=== PATIENT | male | born 1985 | race Caucasian/White ===

== ENCOUNTER 2020-05-08 13:56 | Emergency (ER) | payer OTHER, SELFPAY ==
[2020-05-08 16:16] VITALS: BP 111/72; PULSE 68; RESP 18; TEMP 37.1; O2SAT 98; BMI 21.2
--- NOTE | 2020-05-08 16:49 | ECG_ITS ---
Test Reason : CP Blood Pressure : / mmHG Vent. Rate : 063 BPM Atrial Rate : 063 BPM P-R Int : 162 ms QRS Dur : 096 ms QT Int : 374 ms P-R-T Axes : 069 059 056 degrees QTc Int : 382 ms Normal sinus rhythm RSR' or QR pattern in V1 suggests right ventricular conduction delay Left atrial enlargement Left ventricular hypertrophy Early repolarization Abnormal ECG When compared with ECG of 04-APR-2019 20:21, No significant change was found Referred By: Generic ED Physician Electronically Signed By: DAPHNE CABEZAS MD [facility]
--- NOTE | 2020-05-08 17:29 | XR_ITS ---
EXAMINATION: XR CHEST CLINICAL INFORMATION: Chest pain COMPARISON: None TECHNIQUE: Frontal view of the chest was obtained. FINDINGS: Normal cardiomediastinal silhouette. There is a 1.5 cm nodular density in the right upper lobe, projecting over the anterior right second rib. No focal consolidation. No pleural effusion or pneumothorax No acute osseous abnormality. IMPRESSION: 1.5 cm nodular density in the right upper lobe, projecting over the anterior right second rib. Differential diagnosis includes calcified granuloma or a bone island within the rib. Recommend comparison to any prior studies. CT can also be obtained for further evaluation.
--- NOTE | 2020-05-08 17:30 | ED.CHESTPAIN ---
HPI - Chest Pain General Chief Complaint: Chest Pain Stated Complaint: chest pain Time Seen by Provider: 05/08/20 17:29 Source: patient Mode of arrival: ambulatory Limitations: no limitations History of Present Illness HPI narrative: 35-year-old male otherwise healthy presented with chest pain while [place] the park, patient described the pain lasted for 15 minutes, no radiation, no associated symptoms, patient declined any risks for DVT/ PE no recent travel, no lower extremity swelling or tenderness. Patient also declined any other medical problem, decline risk factor of smoking. Risk Factors Coronary artery disease risk factors: none Related Data Home Medications Medication Instructions Recorded Confirmed No Known Home Meds 05/08/20 05/08/20 Allergies Allergy/AdvReac Type Severity Reaction Status Date / Time No Known Allergies Allergy Verified 05/08/20 16:18 [No Known Allergies*] Review of Systems Review of Systems: Review of Systems Review of Systems Yes all other systems are reviewed and are negative Constitutional: Reports as per HPI and Reports no additional constitutional complaints Eyes: Reports as per HPI and Reports no additional eye complaints Reports system reviewed and no additional complaints, except as documented Cardiovascular: Reports as per HPI and Reports no additional cardiovascular complaints Respiratory: Reports as per HPI and Reports no additional respiratory complaints Gastrointestinal: Reports as per HPI and Reports no additional gastrointestinal complaints Genitourinary: Reports no additional female genitourinary complaints Musculoskeletal: Reports no additional musculoskeletal complaints Skin/Breast: Reports system reviewed and no additional complaints, except as docu Reports system reviewed and no additional complaints, except as documented and Reports Abnormal speech present Psychiatric: Reports no additional psychiatric complaints Endocrine: Reports no additional endocrine complaints Hematologic/Lymphatic: Reports no additional hematologic/lymphatic complaints Allergic/Immunologic: Reports no additional allergic/immunologic complaints [facility] Past Medical History Medical History Patient denies significant medical history Social History Social History Alcohol intake: unknown Smoking Status: Unknown if ever smoked Use of substances other than those prescribed or required for medical reasons: Unknown Advance Directives: No Advance Directives Information Provided: Yes Physical Exam Vital Signs: Vital Signs: Vital Signs Temp Pulse Resp BP Pulse Ox 05/08/20 22:08 97.7 F 65 20 115/79 96 05/08/20 19:19 97.8 F 73 18 117/75 99 05/08/20 16:16 98.8 F 68 18 111/72 98 Body Mass Index 21.2 Const: General: cooperative, healthy appearing, comfortable, no acute distress, well developed, alert, awake and Physically active Orientation/consciousness: oriented to person, oriented to place and oriented to time HENMT: Head: Yes normal to inspection, Yes No palpable skull fracture present, Yes normocephalic and Yes atraumatic Eyes: General: appearance normal, both eyes and all related structures Visual Pierson: normal visual pierson by confrontation Alignment and Position: alignment normal and position normal Periorbital: periorbital findings normal Eyelids: Yes eyelids normal Conjunctivae: conjunctivae normal Sclerae: sclerae normal Corneas: corneas normal Pupils: Equal, round and reactive pupils present and Pupils normal by confrontation EOM: EOMs intact bilaterally Neck: Neck: Yes normal visual inspection, Yes full ROM, Yes no lymphadenopathy, Yes no meningeal signs, Yes trachea midline and Yes supple Chest: Chest palpation & inspection: normal inspection of the chest and normal palpation of entire chest wall Resp: Effort & Inspection: normal respiratory effort and able to speak in complete sentences Auscultation: clear to auscultation bilaterally Back/Spine/Pelvis: Cervical Spine: cervical ROM abnormal Thoracic/Lumbar Spine: thoracic and lumbar spine normal to inspection Skin: General skin exam: no rashes or lesions noted, elasticity normal and turgor normal Neuro: General: oriented to person, oriented to place, oriented to time, gait normal, tone normal, moves all extremities, no meningeal signs and no focal motor deficits Cranial nerves: Yes CN's II-XII intact bilaterally, Yes Facial sensation intact/muscles of mastication intact and Yes Equal, round and reactive pupils present Cognition (Neuro): normal cognition Speech: Abnormal speech present Gait exam (Neuro): Normal gait present Motor exam (neuro): 5/5 motor strength present throughout Sensory Exam: Normal double simultaneous stimulation for sensation Extrem: General: Yes normal to inspection and Yes full ROM Psych: Appearance: grossly normal and well hinckleyt Course Course Course Narrative: 35-year-old male low risk factor for coronary artery disease / PE, HEART SCORE IS 1. presented with chest pain after walking in the park patient never had chest pain in the past, EKG concerning of LVH (patient had no history of hypertension). Will get chest x-ray/ / high sensitive troponin. / labs /reassess. MDM - Chest Pain MDM Narrative Medical decision making narrative: assessment and plan. 35-year-old male with HEART SCORE of 1 and 2- high sensitive troponin presented with chest pain EKG could represent pericarditis versus early repolarization, patient has no chest pain now, D-dimer is unremarkable. Lab Data Result diagrams: 05/08/20 17:47 05/08/20 17:47 Labs: Lab Results 05/08/20 05/08/20 05/08/20 Range/Units 17:47 17:47 17:47 WBC 8.1 (4.8-10.8) X10*3/uL RBC 5.20 (4.60-5.80) X10*6/uL Hgb 15.5 (14.0-18.0) g/dl Hct 46.1 (42-52) % MCV 88.7 (80-98) fL MCH 29.8 (27.0-33.0) pg MCHC 33.6 (31.0-36.0) g/dl RDW 12.4 (11.0-16.0) % Plt Count 218 (160-400) X10*3/uL MPV 10.3 (9.4-12.4) fL Absolute Nucleated RBC 0.000 (0.0-0.012) X10*3/uL Nucleated RBC % (auto) 0.0 (0.0-0.2) /100WBC D-Dimer < 200 NG/ML Sodium 139 (135-145) mmol/L Potassium 4.0 (3.3-5.1) mmol/l Chloride 105 (96-108) mmol/L Carbon Dioxide 27 (22-29) mmol/L Anion Gap 11 L (12-20) BUN 15 (9-16) mg/dL Creatinine 0.79 (0.5-1.4) mg/dL Estim Creat Clear Calc 119.4 Estimated GFR > 60 Random Glucose 99 (60-115) mg/dL Calcium 8.9 (8.4-10.2) mg/dL Total Bilirubin (0.0-1.0) mg/dL Direct Bilirubin (0.0-0.5) mg/dL AST (5-37) U/L ALT (0-40) U/L Alkaline Phosphatase (39-117) U/L Troponin I High Sens (<3.5-35.0) ng/L B-Natriuretic Peptide (<100) pg/mL Total Protein (6.5-8.0) g/dL Albumin (3.5-5.0) g/dL Lipase (8-78) U/L 05/08/20 05/08/20 05/08/20 Range/Units 19:18 19:18 22:34 WBC (4.8-10.8) X10*3/uL RBC (4.60-5.80) X10*6/uL Hgb (14.0-18.0) g/dl Hct (42-52) % MCV (80-98) fL MCH (27.0-33.0) pg MCHC (31.0-36.0) g/dl RDW (11.0-16.0) % Plt Count (160-400) X10*3/uL MPV (9.4-12.4) fL Absolute Nucleated RBC (0.0-0.012) X10*3/uL Nucleated RBC % (auto) (0.0-0.2) /100WBC D-Dimer NG/ML Sodium (135-145) mmol/L Potassium (3.3-5.1) mmol/l Chloride (96-108) mmol/L Carbon Dioxide (22-29) mmol/L Anion Gap (12-20) BUN (9-16) mg/dL Creatinine (0.5-1.4) mg/dL Estim Creat Clear Calc Estimated GFR Random Glucose (60-115) mg/dL Calcium (8.4-10.2) mg/dL Total Bilirubin 0.6 (0.0-1.0) mg/dL Direct Bilirubin 0.3 (0.0-0.5) mg/dL AST 20 (5-37) U/L ALT 31 (0-40) U/L Alkaline Phosphatase 40 (39-117) U/L Troponin I High Sens < 3.5 < 3.5 (<3.5-35.0) ng/L B-Natriuretic Peptide < 10 (<100) pg/mL Total Protein 6.6 (6.5-8.0) g/dL Albumin 4.2 (3.5-5.0) g/dL Lipase 29 (8-78) U/L Imaging Data Chest x-ray: Radiologist's impression: IMPRESSION: 1.5 cm nodular density in the right upper lobe, projecting over the anterior right second rib. Differential diagnosis includes calcified granuloma or a bone island within the rib. Recommend comparison to any prior studies. CT can also be obtained for further evaluation. ECG Data ECG #1: Interpretation: normal sinus rhythm at 63 beats per minute, LVH, normal axis deviation, normal intervals, diffuse early repolarization versus Diffuse ST elevation possible pericarditis. Discharge Plan Discharge Clinical Impression: Incidental lung nodule Chest pain Qualifiers: Chest pain type: unspecified Qualified Code(s): R07.9 - Chest pain, unspecified Pericarditis Qualifiers: Pericarditis type: unspecified type Chronicity: acute Qualified Code(s): I30.9 - Acute pericarditis, unspecified Patient Disposition: Home, Self-Care Instructions: Acute Pericarditis (ED), Pulmonary Nodules (ED) Prescriptions: No Action No Known Home Meds RF: 0
[2020-05-08 17:54] LABS: Hematocrit 46.1 % (42-52); Hemoglobin 15.5 g/dl (14.0-18.0); Mean Corpuscular HGB Conc 33.6 g/dl (31.0-36.0); Mean Corpuscular Hemoglobin 29.8 pg (27.0-33.0); Mean Corpuscular Volume 88.7 fL (80-98); Mean Platelet Volume 10.3 fL (9.4-12.4); Platelet Count 218 X10*3/uL (160-400); Red Cell Distribution Width 12.4 % (11.0-16.0); White Blood Count 8.1 X10*3/uL (4.8-10.8)
[2020-05-08 18:04] LABS: D Dimer < 200 NG/ML
[2020-05-08 18:25] LABS: Anion Gap 11 (12-20); Blood Urea Nitrogen 15 mg/dL (9-16); Calcium 8.9 mg/dL (8.4-10.2); Carbon Dioxide 27 mmol/L (22-29); Chloride 105 mmol/L (96-108); Creatinine Clr Calc Pharmacy 119.4; Estimated Glomerular Filt Rate > 60; Glucose Random 99 mg/dL (60-115); Sodium 139 mmol/L (135-145)
[2020-05-08 19:19] VITALS: BP 117/75; PULSE 73; RESP 18; TEMP 36.6; O2SAT 99
[2020-05-08 20:01] LABS: Alanine Aminotransferase 31 U/L (0-40); Albumin Level 4.2 g/dL (3.5-5.0); Alkaline Phosphatase 40 U/L (39-117); Aspartate Amino Transferase 20 U/L (5-37); Bilirubin Direct 0.3 mg/dL (0.0-0.5); Bilirubin Total 0.6 mg/dL (0.0-1.0); Lipase 29 U/L (8-78); Total Protein 6.6 g/dL (6.5-8.0)
[2020-05-08 20:05] LABS: B Type Natriuretic Peptide < 10 pg/mL (<100); Troponin-I High Sensitivity < 3.5 ng/L (<3.5-35.0)
[2020-05-08 22:08] VITALS: BP 115/79; PULSE 65; RESP 20; TEMP 36.5; O2SAT 96
[2020-05-08 23:09] LABS: Troponin-I High Sensitivity < 3.5 ng/L (<3.5-35.0)
== END 2020-05-08 23:48 | disposition home or self-care (01) ==
PROVIDERS: Emergency Provider Emergency Medicine; PCP Internal Medicine
DX: R07.9 Chest pain, unspecified (principal); I30.9 Acute pericarditis, unspecified; R91.8 Other nonspecific abnormal finding of lung field; R91.1 Solitary pulmonary nodule
CPT/HCPCS: 36415; 71045; 80048; 80076; 83690; 83880; 84484; 85027; 85379; 93005; 99283; 99284

== ENCOUNTER 2021-02-05 16:49 | Outpatient (REF) | payer OTHER, SELFPAY ==
--- NOTE | ~2021-02-05 | XR_ITS ---
EXAMINATION: XR CHEST CLINICAL INFORMATION: Chest pain. Nodule. COMPARISON: Chest radiograph dated 05/08/2020 TECHNIQUE: Two views of the chest were obtained. FINDINGS: Redemonstration of an ovoid density overlying the right 2nd rib measuring approximately 1.3 cm, not significantly changed. Findings may represent a bone island versus calcified granuloma. No confluent airspace consolidation. No pleural effusion or pneumothorax. Stable cardiomediastinal silhouette. No acute osseous abnormality. XR/XR chest 2V IMPRESSION: Stable ovoid density overlying the right upper lobe and the right 2nd rib, which may represent a bone island or calcified granuloma. No significant interval change.
== END 2021-02-05 16:50 | disposition home or self-care (01) ==
LOC: HO.XRAY 16:49
PROVIDERS: PCP Internal Medicine; Visit Provider Internal Medicine
DX: R07.9 Chest pain, unspecified (principal)
CPT/HCPCS: 71046

== ENCOUNTER 2023-06-16 18:51 | Emergency (ER) | payer OTHER, SELFPAY ==
--- NOTE | ~2023-06-16 | US_ITS ---
EXAMINATION: US ABDOMEN LIMITED CLINICAL INFORMATION: Right upper quadrant pain. COMPARISON: None available. TECHNIQUE: Real-time imaging of the right upper quadrant abdominal viscera. FINDINGS: PANCREAS: Largely obscured by overlapping bowel gas. LIVER: Within the right hepatic lobe, a 1.1 cm benign, simple cyst is seen, for which no imaging follow-up is recommended.. The liver is normal in size. The liver contour is normal. Parenchymal echogenicity is normal. No focal hepatic solid lesion. There is no intrahepatic biliary duct dilatation seen. GALLBLADDER: Normal. The gallbladder is physiologically distended without evidence of stones, sludge, polyps, wall thickening or pericholecystic fluid. COMMON BILE DUCT: Normal in caliber measuring 0.3 cm in diameter. RIGHT KIDNEY: Normal. No hydronephrosis. No renal calculi or focal parenchymal lesions. The kidney measures 9.9 cm in maximum dimension. FREE FLUID: None. US/US abdomen limited IMPRESSION: Unremarkable examination, with imaging of the pancreas technically limited.
[2023-06-16 19:50] VITALS: BP 138/82; PULSE 71; RESP 18; TEMP 36.8; O2SAT 98; BMI 22.0
--- NOTE | 2023-06-16 19:51 | ED_ITS ---
HPI - Abdominal Pain General Chief Complaint: Abdominal Pain Stated Complaint: abd pain Time Seen by Provider: 06/17/23 02:22 Source: patient Mode of arrival: ambulatory History of Present Illness HPI narrative: 38-year-old male without significant past medical history reports 3 weeks of intermittent periumbilical discomfort without fever, chills, nausea, vomiting or diarrhea. Patient denies any dysuria. Related Data Home Medications Medication Instructions Recorded Confirmed No Known Home Meds 05/08/20 05/08/20 Allergies Allergy/AdvReac Type Severity Reaction Status Date / Time No Known Allergies Allergy Verified 06/16/23 19:50 [No Known Allergies*] Review of Systems Review of Systems Pertinent positives and negatives as stated in HPI PMFSH Past Medical History Source: nursing notes reviewed Medical History Patient denies significant medical history Social History Social History Alcohol intake: current Alcohol intake frequency: a few times a month Smoked in Last 30 Days: No Use of substances other than those prescribed or required for medical reasons: Yes Substance Use Type: Marijuana Substance Use Frequency: Socially Advance Directives: No Advance Directives Information Provided: No Physical Exam ED Vital Signs: Vital Signs - 24 hr 06/16/23 19:50 06/17/23 01:32 Temperature 98.3 F 97.7 F Pulse Rate 71 68 Respiratory Rate 18 18 Blood Pressure 138/82 133/84 Pulse Oximetry 98 99 Oxygen Delivery Method Room Air Room Air BMI result Body Mass Index 22.0 VITAL SIGNS: Reviewed. GENERAL: Well developed, well nourished, in no acute distress. HEAD: Normocephalic/atraumatic EYES: PERRLA, EOMI EARS: Ext canals without abnormality NOSE: Nares patent bilateral OROPHARYNX: no oral lesions noted, posterior pharynx clear NECK: Supple, no adenopathy LUNGS: Normal breath sounds. No adventitious sounds or accessory muscle use. SpO2<99> CARDIOVASCULAR: Regular rate and rhythm without noted murmurs ABDOMEN: Soft, minimal tenderness on deep palpation at the umbilicus Jacklyn no hernia appreciated, non-distended with bowel sounds. MUSCULOSKELETAL: No tenderness, deformities, or effusions noted on gross inspection. EXTREMITIES: No cyanosis, clubbing or edema. SKIN: Inspection of the skin reveals no rashes NEUROLOGIC: Alert and oriented x 4. Strength and sensation to light touch were grossly intact x 4. Course Course Course Narrative: This is an RME: Additional HPI, ROS, PE not included below will be deferred to primary provider. This is a [id number]-male presenting to the ER with a complaint of epigastric abdominal pain x several weeks. Plan: Labs, US Medical Decision Making Medical Decision Making MDM Narrative: 38-year-old male with history and clinical presentation, DDX: Umbilical hernia, constipation, low clinical suspicion for UTI/appendicitis. I reviewed all investigations and hematologic indices are grossly within normal limits without leukocytosis or left shift, no anemia or thrombocytopenia. Chemistry indices are grossly within normal limits without evidence of XENIA her electrolytes/liver enzymes derangements. Lipase is within normal limits. Urinalysis negative for UTI or hematuria. Abdominal ultrasound negative for any acute findings. My interpretation is patient might have periumbilical pain associated with occasional herniation of fat into the umbilical area but currently no evidence to suggest cellulitis or hernia and there certainly are no obstructive symptoms. I strongly encouraged the patient follow-up as primary care doctor to discuss further evaluation the outpatient setting by General surgery. Differential Diagnosis Differential Diagnoses: The differential diagnosis associated with the presentation includes Please see the discussion above Admission/Observation Consideration of admission/observation: Escalation of care including admission/observation considered Please see the discussion above Lab Data [facility] Lab Attestation statement: I reviewed the patient's lab results. Please see the discussion above 06/16/23 20:27 06/16/23 20:27 Labs: Lab Results 06/16/23 06/17/23 Range/Units 20:27 01:43 WBC 5.6 (4.8-10.8) X10*3/uL RBC 5.53 (4.60-5.80) X10*6/uL Hgb 16.5 (14.0-18.0) g/dl Hct 48.7 (42.0-52.0) % MCV 88.1 (80.0-98.0) fL MCH 29.8 (27.0-33.0) pg MCHC 33.9 (31.0-36.0) g/dl RDW 12.4 (11.0-16.0) % Plt Count 242 (160-400) X10*3/uL MPV 10.1 (9.4-12.4) fL Immature Gran % (Auto) 0.2 (0.0-0.4) % Neut % (Auto) 44.2 L (45-73) % Lymph % (Auto) 37.9 (20-40) % [place] % (Auto) 11.8 H (2-11) % Eos % (Auto) 5.4 H (0-4) % Baso % (Auto) 0.5 (0-2) % Lymph # (Auto) 2.1 (1.2-4.9) X10*3/uL [place] # (Auto) 0.7 (0.1-1.2) X10*3/uL Eos # (Auto) 0.3 (0.0-0.4) X10*3/uL Baso # (Auto) 0.0 (0.0-0.2) X10*3/uL Abs Immat Gran (auto) 0.01 (0.00-0.03) X10*3/uL Absolute Neuts (auto) 2.5 (2.0-8.3) x10*3/uL Absolute Nucleated RBC 0.000 (0.0-0.012) X10*3/uL Nucleated RBC % (auto) 0.0 (0.0-0.2) /100WBC Sodium 138 (135-145) mmol/L Potassium 4.1 (3.3-5.1) mmol/L Chloride 103 (96-108) mmol/L Carbon Dioxide 28 (22-29) mmol/L Anion Gap 11 L (12-20) BUN 16 (9-16) mg/dL Creatinine 0.79 (0.5-1.4) mg/dL Estim Creat Clear Calc 120.2 Estimated GFR > 60 Random Glucose 81 (60-115) mg/dL Calcium 9.3 (8.4-10.2) mg/dL Total Bilirubin 0.7 (0.0-1.0) mg/dL Direct Bilirubin 0.3 (0.0-0.5) mg/dL AST 23 (5-37) U/L ALT 38 (0-40) U/L Alkaline Phosphatase 41 (39-117) U/L Total Protein 7.6 (6.5-8.0) g/dL Albumin 4.6 (3.5-5.0) g/dL Lipase 28 (8-78) U/L Urine Color Yellow Urine Appearance Clear Urine pH 5.5 (5.0-9.0) Ur Specific [place] 1.020 (1.005-1.025) Urine Protein Negative (Neg-Trace) mg/dL Urine Glucose (UA) Negative (Negative) mg/dL Urine Ketones Trace (Negative) mg/dL Urine Blood Negative (Negative) Urine Nitrite Negative (Negative) Ur Leukocyte Esterase Negative (Negative) Radiology Impression Discussion of test interpretation with radiology: I have reviewed the radiologist's reading. Radiologist Impression: Please see the discussion above External Record Review External record reviewed: Outpatient record, Prior outpatient labs and Prior outpatient radiology Discharge Plan Discharge Clinical Impression: Abdominal pain, acute, periumbilical Patient Disposition: Home, Self-Care Instructions: Abdominal Pain (ED) Additional Instructions: 1. Please follow-up with primary care doctor in the next 1-2 days to discuss referral to a general surgeon for concerns regarding umbilical hernia. Prescriptions: No Action No Known Home Meds Referrals: Vinay Erwin MD [Primary Care Provider] -
[2023-06-16 20:33] LABS: MANUAL DIFF FLAG NO
[2023-06-16 20:39] LABS: Basophils Percent Auto 0.5 % (0-2); Eosinophils Absolute Auto 0.3 X10*3/uL (0.0-0.4); Eosinophils Percent Auto 5.4 % (0-4); Hematocrit 48.7 % (42.0-52.0); Hemoglobin 16.5 g/dl (14.0-18.0); Imm Gran Abs Auto 0.01 X10*3/uL (0.00-0.03); Imm Gran Pct Auto 0.2 % (0.0-0.4); Lymphocytes Absolute Auto 2.1 X10*3/uL (1.2-4.9); Lymphocytes Percent Auto 37.9 % (20-40); Mean Corpuscular HGB Conc 33.9 g/dl (31.0-36.0); Mean Corpuscular Hemoglobin 29.8 pg (27.0-33.0); Mean Corpuscular Volume 88.1 fL (80.0-98.0); Mean Platelet Volume 10.1 fL (9.4-12.4); Monocytes Absolute Auto 0.7 X10*3/uL (0.1-1.2); Monocytes Percent Auto 11.8 % (2-11); Neutrophils Absolute Auto 2.5 x10*3/uL (2.0-8.3); Neutrophils Percent Auto 44.2 % (45-73); Platelet Count 242 X10*3/uL (160-400); Red Blood Count 5.53 X10*6/uL (4.60-5.80); Red Cell Distribution Width 12.4 % (11.0-16.0); White Blood Count 5.6 X10*3/uL (4.8-10.8)
[2023-06-16 20:48] LABS: Alanine Aminotransferase 38 U/L (0-40); Albumin Level 4.6 g/dL (3.5-5.0); Alkaline Phosphatase 41 U/L (39-117); Anion Gap 11 (12-20); Aspartate Amino Transferase 23 U/L (5-37); Bilirubin Direct 0.3 mg/dL (0.0-0.5); Bilirubin Total 0.7 mg/dL (0.0-1.0); Blood Urea Nitrogen 16 mg/dL (9-16); Calcium 9.3 mg/dL (8.4-10.2); Carbon Dioxide 28 mmol/L (22-29); Chloride 103 mmol/L (96-108); Creatinine Clr Calc Pharmacy 120.2; Estimated Glomerular Filt Rate > 60; Glucose Random 81 mg/dL (60-115); Lipase 28 U/L (8-78); Potassium 4.1 mmol/L (3.3-5.1); Sodium 138 mmol/L (135-145); Total Protein 7.6 g/dL (6.5-8.0)
[2023-06-17 01:32] VITALS: BP 133/84; PULSE 68; RESP 18; TEMP 36.5; O2SAT 99
--- NOTE | 2023-06-17 01:38 | PC.NURSE ---
pt c/o mid abdominal pain that comes and goes, denies n/v/d, denies cp. last BM was today, reports normal. no diff urinating, pain does not radiate. pt does not know if there is a pattern/cause of pain, finds it hurts more when he is sitting for extended time but today it came on when he was walking around.
[2023-06-17 01:50] LABS: Appearance Urine Clear; Color Urine Yellow; Glucose Urine UA Negative (Negative); Leukocyte Esterase Urine Negative (Negative); Nitrite Urine Negative (Negative); PH 5.5 (5.0-9.0); Urine Blood Negative (Negative); Urine Ketones Trace mg/dL (Negative); Urine Protein Negative (Neg-Trace)
[2023-06-17 03:59] VITALS: BP 122/79; PULSE 62; RESP 16; O2SAT 98
[2023-06-17] MEDS: Acetaminophen 325 MG TABLET 975 MG PO (04:06)
[2023-06-17] MEDS: Ibuprofen 400 MG TABLET PO (04:06)
== END 2023-06-17 04:18 | disposition home or self-care (01) ==
PROVIDERS: Physician Assistant Medical; Emergency Provider Student in an Organized Health Care Education/Training Program; PCP Internal Medicine
DX: R10.33 Periumbilical pain (principal); Z79.899 Other long term (current) drug therapy
CPT/HCPCS: 36415; 76705; 80048; 80076; 81003; 83690; 85025; 99284